=== PATIENT | female | born 1945 | race Caucasian/White ===

== ENCOUNTER 2024-12-09 08:36 | Outpatient (CLI) | payer BC ==
[~2024-12-09 08:36] MED LIST: iohexol 300mg/ml 100ml inj. ONE
--- NOTE | 2024-12-09 09:51 | RADIOLOGY REPORT ---
Indication: LLQ PAIN Technique: CT axial images of the abdomen and pelvis are obtained with intravenous contrast. Coronal and sagittal reformats were obtained. Radiation Dose Information: CTDI volume is 28.5 mGy. Dose-length product is 1355 mGy*cm Comparison: None FINDINGS: Lung bases demonstrate atelectasis. Adrenal glands, spleen, pancreas unremarkable. No CT evidence for cholelithiasis. No enhancing hepati c lesion. No hydronephrosis. Stomach is partially distended. Small bowel loops are normal in caliber. Colonic diverticular disease. No secondary signs for appendicitis. Abdominal aortic atherosclerotic disease. Bladder contracted. No free pelvic fluid. No inguinal lymph adenopathy. Small bilateral fat containing inguinal hernias. No aggressive osseous process. [id number] thoracolumbar degenerative disc disease most pronounc ed at L3-4, L4-5 and L5-S1. Moderate lumbar facet hypertrophic changes. IMPRESSION: Colonic diverticular disease. Atherosclerotic disease. Other findings as described
== END 2024-12-09 23:59 | disposition home or self-care (01) ==
LOC: RAD 08:36
PROVIDERS: ATTEND Family Medicine
DX: K57.30 Diverticulosis of large intestine without perforation or abscess without bleeding (principal); K40.20 Bilateral inguinal hernia, without obstruction or gangrene, not specified as recurrent; K31.89 Other diseases of stomach and duodenum; N32.89 Other specified disorders of bladder; J98.11 Atelectasis; I70.0 Atherosclerosis of aorta; R10.32 Left lower quadrant pain; M51.379 Other intervertebral disc degeneration, lumbosacral region without mention of lumbar back pain or lower extremity pain; M47.816 Spondylosis without myelopathy or radiculopathy, lumbar region
CPT/HCPCS: 74177; Q9967

== ENCOUNTER 2024-12-17 10:37 | Outpatient (CLI) | payer BC ==
--- NOTE | 2024-12-17 11:44 | RADIOLOGY REPORT ---
CLINICAL INDICATION: LEFT HIP AND PELVIC PAIN TECHNIQUE: 1 radiographic views of the pelvis and 2 views of the left hip were obtained. Comparison: None FINDINGS/IMPRESSION: There is no evidence of acute fracture or dislocation. The visualized joint space is well maintained. The alignment is anatomical. There is no radiopaque foreign body.
== END 2024-12-17 23:59 | disposition home or self-care (01) ==
LOC: RAD 10:37
PROVIDERS: ATTEND Family Medicine
DX: M25.552 Pain in left hip (principal)
CPT/HCPCS: 73502